=== PATIENT | female | born 1955 | race Caucasian/White ===

== ENCOUNTER → 2020-06-18 09:41 | Outpatient (CLI) | payer MEDICARE ==
--- NOTE | ~2020-06-18 | EC ---
PATIENT:MAXI OCHOA DATE OF SERVICE: 06/18/20 SEX: F MEDICAL RECORD: [id number] DATE OF : 55 LOCATION:[facility] AGE OF PATIENT: 65 ADMISSION DATE: 06/18/20 REFERRING PHYSICIAN: INTERPRETING PHYSICIAN: JAMARCUS MAY MD ECHOCARDIOGRAM REPORT ECHO CHARGES 4 ECHO COMPLETE Date: 06/18/20 CLINICAL DIAGNOSIS: HX OF HYPERTROPHIC CARDIO- MYOPATHY/HTN ASSESS EF ECHOCARDIOGRAPHIC MEASUREMENTS (adult normal given) AC root (d.<3.7cm) 3.2 cm LV Septum d (<1.2 cm> 1.9 cm Valve Excursion 1.9 cm LV Septum (systole) 2.0 cm Left Atria (s.<4.0cm> 3.7 cm LVPW d(<1.2cm) 1.8 cm RV (d.<2.3cm) 3.3 cm LVPW (sytole) 2.1 cm LV diastole(<5.6CM) 3.0 cm MV E-F(>70mm/sec) cm LV systole 2.0 cm LVOT Diameter 1.5 cm MV exc.(>10mm) cm Est.ejection fraction (50-75%) % DOPPLER: LVIT cm/sec A 84.0 cm/sec E 81.0 cm/sec LA cm/sec RVSP 37 mmHg LVOT 165 cm/sec AOP1/2T 774 m/s Asc. 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 Becerril TAPE# PACS Pericardial Effusion N DATE OF SERVICE: Adequate 2D, color flow imaging, spectral Doppler, and M-Mode. LVH is present. LV internal dimension is normal. Wall motion is normal. EF is greater than or equal to 55%. Aortic valve is sclerotic. No evidence of stenosis by Doppler interrogation. There is mild AI by color flow imaging. Left atrium is normal at 3.7 cm. Mitral valve shows no prolapse. Mild MR. Right-sided chambers are grossly normal. Mild TR. 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
== END | disposition home or self-care (01) ==
LOC: D.HCCECHO 05-24 13:00
PROVIDERS: ATTEND Internal Medicine Interventional Cardiology
DX: I42.9 Cardiomyopathy, unspecified (principal)